=== PATIENT | female | born 1995 | race Hispanic/Latino ===

== ENCOUNTER 2024-05-20 14:02 | Emergency (ER) | payer OTHER, SELFPAY ==
[2024-05-20] MEDS ORDERED: TDAP (DIPHTH,PERTUSS(ACELL),TET VAC) 0.5 ML VIAL IMVAC ONE (14:48)
--- NOTE | 2024-05-20 16:36 | EDPHYS ---
Physician Documentation [facility] Name: Camille Corral Age: 28 yrs Sex: Female : 1995 Arrival Date: 05/20/2024 Time: 14:02 Bed 10 Private MD: ED Physician Aleksandr Bee HPI: 05/20 18:26 This 28 yrs old Female presents to ER via Wheelchair with complaints of Foot sb4 laceration. 18:26 [place] she slipped and fell sb4 on her left leg, sustaining a laceration to her left foot and abrasions to her left ndiaye and knee. Is not sure when she had her tetanus shot last. Denies any chronic medical issues. 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 - Infectious Disease History:: Denies. - Immunization history: Last tetanus immunization: unknown. - Social history:: Smoking status: Patient denies any tobacco usage or history of. ROS: 18:26 Constitutional: Negative for fever, chills, and weight loss, sb4 18:26 Skin: Positive for abrasion(s), laceration(s), 18:26 All other systems are negative, Exam: 18:26 Head/Face: Normocephalic, atraumatic. Eyes: Extra-ocular motions intact. Periorbital sb4 areas with no swelling, redness, or edema. ENT: Mucous membranes moist. 18:26 Constitutional: The patient appears in no acute distress, alert, awake, anxious, 18:26 Skin: injury, abrasion(s), small abrasion noted, of the left knee and anterior aspect of left ankle, laceration(s), the wound is approximately 3 cm(s), with a depth of .5 cm(s), of the dorsum of left foot, Vital Signs: 14:17 BP 130 / 75; Pulse 93; Resp 17; Temp 98.1; Pulse Ox 99% ; Weight 97.52 kg; Height 5 ft. ll1 8 in. ; Pain 8/10; 14:17 Body Mass Index 32.69 (97.52 kg, 172.72 cm) ll1 14:17 Pain Scale: Adult ll1 Eldon Coma Score: 16:54 Eye Response: spontaneous(4). Motor Response: obeys commands(6). Verbal Response: al5 oriented(5). Total: 15. Trauma Score (Adult): 16:54 Eye Response: spontaneous(1); Verbal Response: oriented(1); Motor Response: obeys al5 commands(2); Systolic BP: > 89 mm Hg(4); Respiratory Rate: 10 to 29 per min(4); Allenwood Score: 15; Trauma Score: 12 Laceration: 18:26 Wound Repair of 3cm ( 1.2in ) subcutaneous laceration to dorsum of left foot. Distal sb4 neuro/vascular/tendon intact. Anesthesia: Local anesthetic administered with 3 mls of 1% lidocaine. Wound prep: Wound irrigation with saline by me, Wound explored, Copious irrigation. Skin closed with 3 5-0 Prolene using simple sutures and sterile technique. Dressed with non-adherent dressing. Patient tolerated well. MDM: 14:08 Patient medically screened. sb4 18:26 Data reviewed: vital signs, nurses notes, and as a result, I will discharge patient. sb4 Counseling: I had a detailed discussion with the patient and/or guardian regarding the historical points, exam findings, and any diagnostic results supporting the discharge/admit diagnosis, the need for outpatient follow up, For suture removal in 10 days, to return to the emergency department if symptoms worsen or persist or if there are any questions or concerns that arise at home. 05/20 16:34 Order name: Wound dressing; Complete Time: 16:58 sb4 Administered Medications: 14:54 Drug: Boostrix Tdap IM 0.5 ml IM once; as a single dose Route: IM; Site: right deltoid; al5 16:43 Follow up: Response: No adverse reaction al5 Disposition: 19:35 Co-signature as Attending Physician, Aleksandr Bee MD I reviewed the patient's care rt provided by the Advanced Practice Provider and agree with the diagnosis and treatment plan. Disposition Summary: 05/20/24 16:35 Discharge Ordered Notes: Location: Home sb4 Problem: new sb4 Symptoms: have improved sb4 Condition: Stable sb4 Diagnosis - Laceration without foreign body of foot sb4 Followup: sb4 - With: Private Physician - When: 7 - 10 days - Reason: Staple/Suture removal Discharge Instructions: - Discharge Summary Sheet sb4 - Sutured Wound Care, [id number] sb4 Forms: - Antibiotic Education sb4 - Patient Portal Instructions sb4 - Leadership Thank You Letter sb4 Prescriptions: - Doxycycline Hyclate 100 mg Oral Tablet - take 1 tablet ORAL route every 12 hours; 20 tablet; Refills: 0, Product sb4 Selection Permitted Signatures: Blayne Harrell, RN RN ll1 Maria G Obregon PA-C PA-C sb4 Aleksandr Bee MD MD rt Sadia Kinney RN RN al5
--- NOTE | 2024-05-20 16:36 | ER ---
Nurse's Notes [facility] Name: Camille Corral Age: 28 yrs Sex: Female : 1995 Arrival Date: 05/20/2024 Time: 14:02 Bed 10 Private MD: Diagnosis: Laceration without foreign body of foot Presentation: 05/20 14:17 Chief complaint: Patient states: Fishing and fell onto L knee on hard [place] just [employer]. ll1 Laceration to top of L foot, bleeding controlled. Coronavirus screen: Client denies travel out of the [place] in the last 14 days. At this time, the client does not indicate any symptoms associated with coronavirus-19. Ebola Screen: Patient denies travel to an Ebola-affected area in the 21 days before illness onset. Initial Sepsis Screen: Does the patient meet any 2 criteria? No. Patient's initial sepsis screen is negative. Does the patient have a suspected source of infection? No. Patient's initial sepsis screen is negative. Risk Assessment: Do you want to hurt yourself or someone else? Patient reports no desire to harm self or others. Onset of symptoms was May 20, 2024. 14:17 Method Of Arrival: Wheelchair ll1 14:17 Acuity: FRANCHESCA 4 ll1 16:55 Care prior to arrival: None. Mechanism of Injury: Laceration sustained slipped on rock al5 from fishing. Trauma event details: Injury occurred: May 20, 2024. Triage Assessment: 14:19 General: Appears uncomfortable, Behavior is calm, cooperative, appropriate for age. ll1 Pain: Complains of pain in left foot Quality of pain is described as aching. Derm: Wound noted left foot <2 cm laceration top of L foot. Abrasions noted L knee Reports pain. Injury Description: Abrasion Bruise Laceration. 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 - Infectious Disease History:: Denies. - Immunization history: Last tetanus immunization: unknown. - Social history:: Smoking status: Patient denies any tobacco usage or history of. Screenin:40 [facility] ED Fall Risk Assessment (Adult) History of falling in the last 3 months, al5 including since admission No falls in past 3 months (0 pts) Confusion or Disorientation No (0 pts) Intoxicated or Sedated No (0 pts) Impaired Gait No (0 pts) Mobility Assist Device Used No (0 pt) Altered Elimination No (0 pt) Score/Fall Risk Level 0 - 2 = Low Risk Oriented to surroundings, Maintained a safe environment, Hourly rounding (assess needs \T\ fall precautionary measures) done. Abuse screen: Denies threats or abuse. Denies injuries from another. Abuse screen: Denies threats or abuse. Denies injuries from another. Nutritional screening: No deficits noted. Tuberculosis screening: No symptoms or risk factors identified. Primary Survey: 16:53 NO uncontrolled hemorrhage observed. Breathing/Chest: Spontaneous respiratory effort, al5 equal unlabored respirations, breath sounds clear bilaterally, regular pattern, symmetrical chest rise and fall. Breathing/Chest: Respiratory effort: spontaneous. Circulation: No external hemorrhage present. Regular and strong central pulse, skin warm/dry/normal color. Circulation: Skin color: pink, Skin temperature: warm, dry. Disability Pupils are equal, round, reactive to light and accommodation. Client is alert. Exposure/Environment: There is no evidence of uncontrolled external bleeding. Reassessment Breathing: Spontaneous respiratory effort, equal unlabored respirations, breath sounds clear bilaterally, regular pattern with symmetrical chest rise and fall. Respiratory effort Spontaneous Circulation: No external hemorrhage noted. Regular and strong central pulse, skin warm/dry/normal color. Color [place] Temperature Warm Dry Disability: Pupils Pupils are equal, round, reactive to light and accomodation. Alert. Assessment: 14:37 General: Appears in no apparent distress. Behavior is calm, cooperative. Pain: al5 Complains of pain in left foot Pain began suddenly, Is continuous. Neuro: No deficits noted. Level of Consciousness is awake, alert, obeys commands, Oriented to person, place, time, situation, Gait is steady, Speech is normal, Facial symmetry appears normal. Cardiovascular: No deficits noted. Patient's skin is warm and dry. Respiratory: No deficits noted. Airway is patent Trachea midline Respiratory effort is even, unlabored, Respiratory pattern is regular, symmetrical. Derm: Reports lac to l foot, no active bleeding at this time. superficial abrasions to l knee. Musculoskeletal: Reports pain in left knee. Injury Description: Laceration sustained to left foot is clean, 0.5 to 2.5 cm long, not bleeding, was sustained less than 30 minutes ago. a small amount of bleeding noted at this time. Vital Signs: 14:17 BP 130 / 75; Pulse 93; Resp 17; Temp 98.1; Pulse Ox 99% ; Weight 97.52 kg; Height 5 ft. ll1 8 in. ; Pain 8/10; 14:17 Body Mass Index 32.69 (97.52 kg, 172.72 cm) ll1 14:17 Pain Scale: Adult ll1 Eldon Coma Score: 16:54 Eye Response: spontaneous(4). Motor Response: obeys commands(6). Verbal Response: al5 oriented(5). Total: 15. Trauma Score (Adult): 16:54 Eye Response: spontaneous(1); Verbal Response: oriented(1); Motor Response: obeys al5 commands(2); Systolic BP: > 89 mm Hg(4); Respiratory Rate: 10 to 29 per min(4); Eldon Score: 15; Trauma Score: 12 ED Course: 14:05 Patient arrived in ED. im 14:08 [facility] G [facility]regon [facility] sb4 14:08 Aleksandr Bee MD is Attending Physician. sb4 14:19 Triage completed. ll1 14:20 Arm band placed on Patient placed in an exam room, on a stretcher. ll1 14:25 Sadia Kinney RN is Primary Nurse. al5 15:06 Patient has correct armband on for positive identification. Bed in low position. Call al5 light in reach. 15:06 Irrigation of laceration on left foot irrigated with normal saline Patient tolerated al5 well. 16:42 Provided Education on: wound care instructions.. al5 16:42 Assist provider with laceration repair on left foot that was 2.5 cm. or less using al5 sutures. Set up tray. Performed by Maria G Obregon PA-C Patient tolerated well. Patient did not have IV access during this emergency room visit. 16:53 Wound care: was irrigated with dressed with 4X4s, coban. al5 Administered Medications: 14:54 Drug: Boostrix Tdap IM 0.5 ml IM once; as a single dose Route: IM; Site: right deltoid; al5 16:43 Follow up: Response: No adverse reaction al5 Medication: 16:56 Vaccine Information Statement (VIS) provided today. Questions and/or concerns al5 addressed. VIS edition date: July 03, 2021. Outcome: 16:35 Discharge ordered by . sb4 16:55 Discharged to home ambulatory, al5 16:55 Condition: improved 16:55 Discharge instructions given to patient, Instructed on discharge instructions, follow up and referral plans. medication usage, wound care, Demonstrated understanding of instructions, follow-up care, medications, wound care, 16:57 Patient left the ED. al5 Signatures: Blayne Harrell RN RN ll1 Maria G Obregon PA-C PAArturo sb4 Eliza Gaines Amanda, RN RN al5 Corrections: (The following items were deleted from the chart) 14:40 14:37 General: Appears in no apparent distress. Behavior is calm, cooperative, al5 al5
[2024-05-20 22:43] VITALS: BP 130/75; TEMP 98.1; O2SAT 99
== END 2024-05-20 16:57 | disposition home or self-care (01) ==
LOC: ER 14:02
PROC: 0HQNXZZ Repair Left Foot Skin, External Approach (ICD-10-PCS; principal; 2024-05-20)
DX: S91.312A Laceration without foreign body, left foot, initial encounter (principal)
CPT/HCPCS: 96372; 99284